=== PATIENT | male | born 1960 | race Caucasian/White ===

== ENCOUNTER 2022-07-06 18:29 | Emergency (ER) | payer BC ==
[~2022-07-06] VITALS: Ht 182.9 cm; Wt 97.5 kg
[~2022-07-06 18:29] MED LIST: ASPI-612 PO; LOVA40TA2 PO; METO25TA6 PO; RAMI10CA32 PO
[2022-07-06] MEDS ORDERED: OXYCODONE/APAP 5-325 MG TABLET PO ONE (18:45)
[2022-07-06] MEDS ORDERED: OXYC-128 PO (18:54)
--- NOTE | 2022-07-06 19:00 | NUR ---
PT PLACED IN A SHOULDER IMMOBILZER AND PT GOWN FOR MSE. ISATU GRAMAJO. SBAR TO ZEN CABRAL FOR CONTINUITY OF CARE.
[2022-07-06] MEDS ORDERED: OXYCODONE/APAP 5-325 MG TABLET ONE (19:32)
--- NOTE | 2022-07-06 19:40 | NUR ---
Patient discharged to home in stable condition. Written and verbal after care instructions given. Patient verbalizes understanding of instructions. Stressed follow up or return to ER for worsening s/s.
[2022-07-06 19:47] VITALS: BP 118/75
== END 2022-07-06 19:48 | disposition home or self-care (01) ==
LOC: ER 19:03
DX: S42.022A Displaced fracture of shaft of left clavicle, initial encounter for closed fracture (principal); W17.89XA Other fall from one level to another, initial encounter; Y93.39 Activity, other involving climbing, rappelling and jumping off; Y92.89 Other specified places as the place of occurrence of the external cause; S70.312A Abrasion, left thigh, initial encounter; E78.00 Pure hypercholesterolemia, unspecified; Z79.82 Long term (current) use of aspirin; Z79.899 Other long term (current) drug therapy; Z87.39 Personal history of other diseases of the musculoskeletal system and connective tissue
CPT/HCPCS: 73000; 73020; A4663